=== PATIENT | male | born 1975 | race Caucasian/White ===

== ENCOUNTER 2016-07-28 05:52 | Emergency (ER) | payer BC, OTHER | END 2016-07-28 06:00 | disposition home or self-care (01) | LOC: ER 05:52 | DX: M54.5 Low back pain (principal); Z88.0 Allergy status to penicillin; Z88.2 Allergy status to sulfonamides; Z88.5 Allergy status to narcotic agent | CPT/HCPCS: 96372; 99283; A9270-GY; J1885; J2360 ==